=== PATIENT | female | born 1955 | race Caucasian/White ===

== ENCOUNTER → 2020-04-23 | Outpatient (CLI) | payer MEDICARE ==
[~2020-04-23] MED LIST: DAILY VALUE1 EACH PO; ELIQUIS 2.5 MG2.5 MG GT; FOLATE PO; HYDROCHLOROTH12.5 MG PO; HYDROCODON-ACE1 EAC4 PO; LATANOPROST EYELF; MELATONIN5 M2 PO; MYCOSTATIN CREA15 GM TOP; OXYCODON-ACETA1 EAC1 PO; TYLENOL 500 MG500 MG PO; VITAMIN D3 PO; VITAMIN D350 MC3 PO
[2020-04-23 13:18] LABS: HEMOGLOBIN 12.2 gm/dl (12.3-15.3); RED BLOOD COUNT 4.52 M/UL (4.00-5.10); WHITE BLOOD COUNT 6.7 K/UL (4.5-11.0)
[2020-04-23 13:31] LABS: BUN/CREATININE RATIO 27 (0-10)
== END ==
LOC: OPSV2 12:00 → EDSTATUS 12:00 → OPSV2 12:03
PROVIDERS: Orthopaedic Surgery
DX: Z01.818 Encounter for other preprocedural examination (principal); M17.12 Unilateral primary osteoarthritis, left knee; R94.31 Abnormal electrocardiogram [ECG] [EKG]
CPT/HCPCS: 36415; 80048; 81001; 83036; 85025; 87081; 87086; 93005

== ENCOUNTER → 2020-05-05 | Outpatient (CLI) | payer MEDICARE, OTHER ==
[2020-05-05 11:31] LABS: BUN/CREATININE RATIO 20 (0-10)
== END ==
LOC: LAB 10:32
PROVIDERS: Orthopaedic Surgery
DX: Z01.818 Encounter for other preprocedural examination (principal)
CPT/HCPCS: 80048; 86850; 86900; 86901

== ENCOUNTER 2020-05-06 07:55 | Day surgery (SDC) | payer MEDICARE, OTHER ==
[~2020-05-06] VITALS: Ht 154.9 cm; Wt 94.3 kg
[~2020-05-06 07:55] MED LIST changes: -ELIQUIS 2.5 MG2.5 MG GT; -OXYCODON-ACETA1 EAC1 PO
[2020-05-06] MEDS ORDERED: OXYCODON-ACETA1 EAC1 PO (14:46)
[2020-05-06] MEDS ORDERED: ELIQUIS 2.5 MG2.5 MG GT (14:46)
[2020-05-07 03:20] LABS: HEMOGLOBIN 10.9 gm/dl (12.3-15.3); RED BLOOD COUNT 3.92 M/UL (4.00-5.10); WHITE BLOOD COUNT 11.7 K/UL (4.5-11.0)
[2020-05-07 03:41] LABS: BUN/CREATININE RATIO 21 (0-10)
--- NOTE | 2020-05-07 14:49 | NUR ---
REPORT [facility] ADMITTING NURSE - DON.
== END 2020-05-07 14:54 | disposition home or self-care (01) ==
LOC: OR 07:55 → EDSTATUS 11:45 → M/S 16:00 → OR 05-07 14:54
PROVIDERS: Orthopaedic Surgery
DX: M17.0 Bilateral primary osteoarthritis of knee (principal); I10 Essential (primary) hypertension; K21.9 Gastro-esophageal reflux disease without esophagitis; E66.01 Morbid (severe) obesity due to excess calories; Z68.41 Body mass index [BMI] 40.0-44.9, adult; Z88.0 Allergy status to penicillin; Z91.040 Latex allergy status; Z88.8 Allergy status to other drugs, medicaments and biological substances; Z79.899 Other long term (current) drug therapy
CPT/HCPCS: 36415; 73560; 80048; 85027; 97110-GP-CQ; 97116-GP-CQ; 97162; 97165; 97535; C1776; J0690; J1100; J1885; J2001; J2270; J2704; J2710; J2795; J3010; J3370; J7120

== ENCOUNTER → 2021-08-10 | Outpatient (CLI) | payer MEDICARE, OTHER ==
[~2021-08-10] MED LIST changes: +CALC PO; +DESVENLAFAXINE PO; +ELIQUIS 2.5 MG2.5 MG GT; +LISINOPRIL20 MG PO; +MAG PO; +MIRTAZAPINE45 MG PO; +OMEGA-31000 MG PO; +OXYCODON-ACETA1 EAC1 PO; +VITAMIN B12 PO; +VITAMIN C PO; +VITAMIN E PO; +VITD PO; +ZINC PO
[2021-08-10 12:05] LABS: HEMOGLOBIN 12.3 gm/dl (12.3-15.3); RED BLOOD COUNT 4.51 M/UL (4.00-5.10); WHITE BLOOD COUNT 7.1 K/UL (4.5-11.0)
[2021-08-10 12:27] LABS: BUN/CREATININE RATIO 28 (0-10)
== END ==
LOC: OPSV2 10:00 → EDSTATUS 10:00 → OPSV2 10:42
PROVIDERS: Orthopaedic Surgery
DX: Z01.818 Encounter for other preprocedural examination (principal); M17.11 Unilateral primary osteoarthritis, right knee
CPT/HCPCS: 36415; 71046; 80048; 85027; 93005

== ENCOUNTER → 2021-08-24 | Outpatient (CLI) | payer MEDICARE, OTHER ==
[~2021-08-24] MED LIST changes: +DULOXETINE HCL30 MG PO; +ELIQUIS2.5 MG PO; +FLOMAX0.4 MG PO; +IBUPROFEN IB200 MG PO; +MELOXICAM15 MG PO; +ZOFRAN ODT 4 MG4 MG PO
[2021-08-24 09:21] LABS: BUN/CREATININE RATIO 26 (0-10)
== END ==
LOC: LAB 08:20
PROVIDERS: Orthopaedic Surgery
DX: Z01.812 Encounter for preprocedural laboratory examination (principal)
CPT/HCPCS: 36415; 80048; 86850; 86900; 86901

== ENCOUNTER 2021-08-25 07:51 | Day surgery (SDC) | payer MEDICARE, OTHER ==
[~2021-08-25] VITALS: Ht 149.9 cm; Wt 101.0 kg
[~2021-08-25 07:51] MED LIST changes: -DULOXETINE HCL30 MG PO; -ELIQUIS2.5 MG PO; -FLOMAX0.4 MG PO; -IBUPROFEN IB200 MG PO; -MELOXICAM15 MG PO; -ZOFRAN ODT 4 MG4 MG PO
[2021-08-25] MEDS ORDERED: ZOFRAN ODT 4 MG4 MG PO (08:34)
[2021-08-25] MEDS ORDERED: ELIQUIS2.5 MG PO (08:34)
[2021-08-25] MEDS ORDERED: IBUPROFEN IB200 MG PO (08:35)
[2021-08-25] MEDS ORDERED: DULOXETINE HCL30 MG PO (08:36)
[2021-08-25] MEDS ORDERED: MELOXICAM15 MG PO (08:36)
[2021-08-25] MEDS ORDERED: FLOMAX0.4 MG PO (08:37)
[2021-08-26 04:06] LABS: HEMOGLOBIN 9.7 gm/dl (12.3-15.3); RED BLOOD COUNT 3.54 M/UL (4.00-5.10); WHITE BLOOD COUNT 13.4 K/UL (4.5-11.0)
[2021-08-26 04:17] LABS: BUN/CREATININE RATIO 24 (0-10)
== END 2021-08-26 15:32 | disposition home or self-care (01) ==
LOC: OR 07:51 → EDSTATUS 11:15 → OR 11:15 → M/S 15:10 → OR 08-26 15:32
PROVIDERS: Orthopaedic Surgery
DX: M17.11 Unilateral primary osteoarthritis, right knee (principal); E66.01 Morbid (severe) obesity due to excess calories; Z68.41 Body mass index [BMI] 40.0-44.9, adult; G89.18 Other acute postprocedural pain; I10 Essential (primary) hypertension; K21.9 Gastro-esophageal reflux disease without esophagitis; F32.A Depression, unspecified; Z88.0 Allergy status to penicillin; Z88.8 Allergy status to other drugs, medicaments and biological substances; Z91.040 Latex allergy status; Z79.899 Other long term (current) drug therapy
CPT/HCPCS: 36415; 73560; 80048; 85027; 97116-GP-CQ; 97161; 97166; 97530; 97535; C1713; C1776; J0171; J0690; J0735; J1100; J1170; J1200; J1885; J2250; J2270; J2274; J2405; J2704; J2710; J2795; J3010; J3370; J3475; J7120

== ENCOUNTER → 2021-09-01 | Outpatient (CLI) | payer MEDICARE, OTHER ==
[~2021-09-01] MED LIST changes: +DULOXETINE HCL30 MG PO; +ELIQUIS2.5 MG PO; +FLOMAX0.4 MG PO; +IBUPROFEN IB200 MG PO; +MELOXICAM15 MG PO; +ZOFRAN ODT 4 MG4 MG PO
== END ==
LOC: KOH-I 13:53
DX: R22.41 Localized swelling, mass and lump, right lower limb (principal)
CPT/HCPCS: 93971

== ENCOUNTER 2021-09-07 08:26 | Emergency (ER) | payer MEDICARE, OTHER ==
[2021-09-07 09:34] LABS: HEMOGLOBIN 9.6 gm/dl (12.3-15.3); RED BLOOD COUNT 3.59 M/UL (4.00-5.10); WHITE BLOOD COUNT 8.2 K/UL (4.5-11.0)
[2021-09-07 09:51] LABS: BUN/CREATININE RATIO 23 (0-10)
== END 2021-09-07 11:47 | disposition home or self-care (01) ==
LOC: ER1 08:26
PROVIDERS: Nurse Practitioner
DX: M96.89 Other intraoperative and postprocedural complications and disorders of the musculoskeletal system (principal); Z88.0 Allergy status to penicillin; Z96.651 Presence of right artificial knee joint
CPT/HCPCS: 80053; 81001; 83605; 85025; 85652; 86140; 87040; 99283